=== PATIENT | male | born 1955 | race African-American/Black ===

== ENCOUNTER 2022-12-14 06:54 | Inpatient (IN) | payer MEDICARE ==
[2022-12-14 07:48] LABS: #Basophils 0.1 10x3/uL (0.0-0.2); #Eosinphils 0.1 10x3/uL (0.0-0.5); #Monocytes 0.9 10x3/uL (0.0-1.1); #Neutrophils 7.7 10x3/uL (1.5-8.4); %Basophils 0.5 % (0.0-2.0); %Eosinophils 0.6 % (0.0-6.0); %Monocytes 9.1 % (0.0-10.0); %Neutrophils 79.1 % (40.0-75.0); Hemoglobin 8.7 g/dL (13.5-17.5); Mean Corpuscular Hemoglobin 27.4 pg (27.0-33.0); Mean Corpuscular Volume 85.5 fl (81.2-95.1); Mean Platelet Volume 10.7 fl (7.4-10.4); Platelet Count 419 10x3/uL (150-450); RBC Distribution Width 14.5 % (11.5-14.5); Red Blood Cell (RBC) Count 3.18 10x6/uL (4.32-5.72); White Blood Cell (WBC) Count 9.7 10x3/uL (3.5-10.5)
[2022-12-14 07:55] LABS: ALT (SGPT) 36 U/L (8-55); AST (SGOT) 40 U/L (5-34); Acetaminophen Less than 10.0 mcg/mL (10.0-30.0); Albumin 3.5 g/dL (3.4-4.8); Alcohol Less than 10 mg/dL (Less than 10); Alkaline Phosphatase 97 U/L (40-110); Anion Gap 22 mmol/L (10-20); BUN (Urea Nitrogen) 25 mg/dL (8.4-25.7); Bilirubin, Total 0.2 mg/dL (0.2-1.2); Calc. Creatinine Clearance 0 mL/min (70-130); Calcium 9.5 mg/dL (7.8-10.44); Carbon Dioxide 31 mmol/L (23-31); Chloride 95 mmol/L (98-107); Estimated GFR 55; Globulin 3.9 g/dL (2.4-3.5); Glucose 337 mg/dL (80-115); Potassium 3.8 mmol/L (3.5-5.1); Protein, Total 7.4 g/dL (5.8-8.1); Salicylate Less than 8.0 mg/dL (15.0-30.0); Sodium 144 mmol/L (136-145)
[2022-12-14 08:01] LABS: Platelet Morphology Comment Appears Adequate
[2022-12-14 10:33] LABS: Lactic Acid 1.4 mmol/L (0.5-2.2)
[2022-12-14] MEDS ORDERED: Mag-Al Plus 1200 MG/1200 MG/120 MG/30 ML UDCUP ONE (11:59)
[2022-12-14] MEDS ORDERED: Acetaminophen 325 MG TAB PO PRN (14:01)
[2022-12-14] MEDS ORDERED: Senokot S 8.6-50 MG TAB PO PRN (14:01)
[2022-12-14] MEDS ORDERED: Multivitamins, Adult 10 ML, Folic Acid 1 MG, Thiamine HCl 100 MG in Dextrose 5 %-0.45 %... IV SCH (14:15)
[2022-12-14] MEDS ORDERED: levETIRAcetam 500 MG TAB PO SCH (14:15)
[2022-12-14] MEDS ORDERED: Dextrose 5% in Water 1,000 ML IV PRN (14:28)
[2022-12-14] MEDS ORDERED: Dextrose 50% Abboject 50 ML SYRINGE SLOW IVP PRN (14:28)
[2022-12-14] MEDS ORDERED: Multivit, Therapeutic 1 TAB PO SCH (14:30)
[2022-12-14] MEDS ORDERED: Thiamine HCl 200 MG/2 ML VIAL SLOW IVP SCH (14:30)
[2022-12-14 15:46] VITALS: BMI 24.0
[2022-12-14] MEDS ORDERED: FLU VACC QS2022-23(65YR UP)/PF 240 MCG/0.7 ML SYRINGE IM ONE (16:00)
[2022-12-14] MEDS: Sodium Chloride 0.9% 1,000 ML IV SCH (17:00)
[2022-12-14] MEDS: levETIRAcetam 500 MG TAB PO SCH (20:24)
[2022-12-14] MEDS: Heparin 5,000 UNITS/ML VIAL SC SCH (20:24)
[2022-12-14] MEDS: HumaLOG 300 UNITS/3 ML VIAL SC PRN (20:32)
[2022-12-15 03:39] LABS: #Eosinphils 0.3 10x3/uL (0.0-0.5); #Monocytes 0.8 10x3/uL (0.0-1.1); #Neutrophils 6.8 10x3/uL (1.5-8.4); %Basophils 0.2 % (0.0-2.0); %Lymphocytes 19.6 % (18.0-47.0); %Monocytes 7.9 % (0.0-10.0); Hemoglobin 7.6 g/dL (13.5-17.5); Mean Corpuscular HGB CONC 31.4 g/dL (32.0-36.0); Mean Corpuscular Hemoglobin 27.3 pg (27.0-33.0); Mean Corpuscular Volume 87.1 fl (81.2-95.1); Mean Platelet Volume 9.7 fl (7.4-10.4); Platelet Count 384 10x3/uL (150-450); RBC Distribution Width 14.3 % (11.5-14.5); Red Blood Cell (RBC) Count 2.78 10x6/uL (4.32-5.72); White Blood Cell (WBC) Count 9.9 10x3/uL (3.5-10.5)
[2022-12-15 04:00] LABS: ALT (SGPT) 48 U/L (8-55); AST (SGOT) 55 U/L (5-34); Albumin 2.8 g/dL (3.4-4.8); Alkaline Phosphatase 81 U/L (40-110); Anion Gap 14 mmol/L (10-20); BUN (Urea Nitrogen) 12 mg/dL (8.4-25.7); Bilirubin, Total 0.2 mg/dL (0.2-1.2); Calc. Creatinine Clearance 71 mL/min (70-130); Calcium 8.6 mg/dL (7.8-10.44); Carbon Dioxide 24 mmol/L (23-31); Chloride 102 mmol/L (98-107); Estimated GFR 92; Globulin 3.4 g/dL (2.4-3.5); Glucose 150 mg/dL (80-115); Potassium 3.3 mmol/L (3.5-5.1); Protein, Total 6.2 g/dL (5.8-8.1); Sodium 137 mmol/L (136-145)
[2022-12-15] MEDS: Sodium Chloride 0.9% 1,000 ML IV SCH ×2 (07:25→20:58)
[2022-12-15] MEDS ORDERED: Lorazepam 2 MG/ML VIAL IM PRN (08:04)
[2022-12-15] MEDS ORDERED: Ondansetron ODT 4 MG TAB PO PRN (08:04)
[2022-12-15] MEDS ORDERED: Lorazepam 1 MG TAB PO PRN (08:04)
[2022-12-15] MEDS ORDERED: Electrolyte Replacement Protocol 1 EACH FS SCH (08:15)
[2022-12-15] MEDS: Heparin 5,000 UNITS/ML VIAL SC SCH ×2 (08:55→21:00)
[2022-12-15] MEDS ORDERED: Potassium Chloride 20 MEQ TAB PO SCH (09:00)
[2022-12-15] MEDS: levETIRAcetam 500 MG TAB PO SCH ×2 (09:39→20:58)
[2022-12-15] MEDS: Lorazepam 1 MG TAB PO SCH ×3 (09:39→20:58)
[2022-12-15] MEDS: Thiamine HCl 200 MG/2 ML VIAL SLOW IVP SCH (09:40)
[2022-12-15] MEDS ORDERED: hydrALAZINE 20 MG/ML VIAL SLOW IVP PRN (12:39)
[2022-12-15] MEDS ORDERED: Aspirin 325 mg Enteric Coated Tablet PO SCH (13:00)
[2022-12-15] MEDS: Aspirin 325 mg Enteric Coated Tablet PO SCH (14:10)
[2022-12-15 15:44] LABS: Iron 14 ug/dL (65-175); Iron Binding Capacity, Total 188 mcg/dL (261-462); Potassium 4.2 mmol/L (3.5-5.1); Transferrin, Serum 150 mg/dL (163-344)
[2022-12-15] MEDS: HumaLOG 300 UNITS/3 ML VIAL SC PRN (17:41)
[2022-12-15] MEDS: Atorvastatin Calcium 40 MG TAB PO SCH (20:58)
[2022-12-16] MEDS: Lorazepam 1 MG TAB PO SCH ×5 (02:55→20:37)
[2022-12-16 05:23] LABS: Cardiac Risk 5.4 (Less than 4.5); Cholesterol 156 mg/dl (< 200 Desired); HDL Cholesterol 29 mg/dL (>60 Neg Risk); LDL Cholesterol, Calculated 104 mg/dL; Magnesium 1.6 mg/dL (1.6-2.6); Phosphorus 2.4 mg/dL (2.3-4.7); Triglycerides 113 mg/dL (Less than 150)
[2022-12-16] MEDS: Sodium Chloride 0.9% 1,000 ML IV SCH ×2 (07:55→13:20)
[2022-12-16] MEDS ORDERED: Magnesium 2 GM/50 ML(in water) 2 GM in Premix Bag 1 BAG IVPB SCH (08:00)
[2022-12-16] MEDS ORDERED: Lorazepam 1 MG TAB PO PRN (08:05)
[2022-12-16] MEDS: Thiamine HCl 200 MG/2 ML VIAL SLOW IVP SCH (10:25)
[2022-12-16] MEDS: levETIRAcetam 500 MG TAB PO SCH ×2 (10:27→20:37)
[2022-12-16] MEDS: Heparin 5,000 UNITS/ML VIAL SC SCH ×2 (10:27→20:38)
[2022-12-16] MEDS: Aspirin 325 mg Enteric Coated Tablet PO SCH (10:27)
[2022-12-16] MEDS: HumaLOG 300 UNITS/3 ML VIAL SC PRN ×2 (16:34→22:14)
[2022-12-16] MEDS: Atorvastatin Calcium 40 MG TAB PO SCH (20:37)
[2022-12-17] MEDS: Lorazepam 1 MG TAB PO SCH (04:18)
[2022-12-17] MEDS: Sodium Chloride 0.9% 1,000 ML IV SCH (04:18)
[2022-12-17 04:48] LABS: #Eosinphils 0.3 10x3/uL (0.0-0.5); #Monocytes 0.4 10x3/uL (0.0-1.1); %Basophils 0.4 % (0.0-2.0); %Eosinophils 3.5 % (0.0-6.0); %Lymphocytes 24.6 % (18.0-47.0); %Monocytes 5.2 % (0.0-10.0); %Neutrophils 65.8 % (40.0-75.0); Mean Corpuscular HGB CONC 31.7 g/dL (32.0-36.0); Mean Corpuscular Hemoglobin 26.8 pg (27.0-33.0); Mean Corpuscular Volume 84.7 fl (81.2-95.1); Mean Platelet Volume 10.1 fl (7.4-10.4); Platelet Count 454 10x3/uL (150-450); RBC Distribution Width 14.2 % (11.5-14.5); Red Blood Cell (RBC) Count 2.61 10x6/uL (4.32-5.72); White Blood Cell (WBC) Count 7.5 10x3/uL (3.5-10.5)
[2022-12-17 05:06] LABS: Anion Gap 12 mmol/L (10-20); BUN (Urea Nitrogen) 14 mg/dL (8.4-25.7); Calc. Creatinine Clearance 68 mL/min (70-130); Calcium 8.3 mg/dL (7.8-10.44); Carbon Dioxide 24 mmol/L (23-31); Chloride 103 mmol/L (98-107); Estimated GFR 88; Glucose 155 mg/dL (80-115); Potassium 4.3 mmol/L (3.5-5.1); Sodium 135 mmol/L (136-145)
[2022-12-17] MEDS: HumaLOG 300 UNITS/3 ML VIAL SC PRN ×2 (05:54→12:34)
[2022-12-17] MEDS ORDERED: Lorazepam 1 MG TAB PO PRN (08:05)
[2022-12-17] MEDS ORDERED: Amlodipine 5 MG TAB PO SCH (09:00)
[2022-12-17] MEDS: Heparin 5,000 UNITS/ML VIAL SC SCH (10:03)
[2022-12-17] MEDS: Thiamine HCl 200 MG/2 ML VIAL SLOW IVP SCH (10:07)
[2022-12-17] MEDS: levETIRAcetam 500 MG TAB PO SCH (10:07)
[2022-12-17] MEDS: Aspirin 325 mg Enteric Coated Tablet PO SCH (10:07)
[2022-12-17] MEDS: Lorazepam 0.5 MG TAB PO SCH ×2 (10:08→16:32)
[2022-12-17 13:01] LABS: Hemoglobin 8.4 g/dL (13.5-17.5); Platelet Count 503 10x3/uL (150-450)
[2022-12-17 13:15] VITALS: TEMP 98.1
[2022-12-17 13:41] VITALS: BP 151/71
[2022-12-17] MEDS ORDERED: metFORMIN 500 MG TAB PO SCH (17:00)
[2022-12-18] MEDS ORDERED: Lorazepam 0.5 MG TAB PO PRN (08:05)
[2022-12-18] MEDS ORDERED: Thiamine 100 MG TAB PO SCH (09:00)
[2022-12-18] MEDS ORDERED: Amlodipine 5 MG TAB PO SCH (09:00)
== END 2022-12-17 15:00 | DRG 65 ==
LOC: CSHERS 06:54 → CSHTELE 15:11
PROVIDERS: ADMIT Internal Medicine; ATTEND Family Medicine
PROC: 4A10X4Z Monitoring of Central Nervous Electrical Activity, External Approach (ICD-10-PCS; principal; 2022-12-15)
DX: I63.9 Cerebral infarction, unspecified (principal); N17.9 Acute kidney failure, unspecified; I10 Essential (primary) hypertension; E86.0 Dehydration; M10.9 Gout, unspecified; G40.909 Epilepsy, unspecified, not intractable, without status epilepticus; E11.65 Type 2 diabetes mellitus with hyperglycemia; E87.6 Hypokalemia; Z20.822 Contact with and (suspected) exposure to COVID-19; D50.9 Iron deficiency anemia, unspecified
CPT/HCPCS: 36415; 36416; 70450; 70496; 70498; 70551; 71046; 80048; 80053; 80061; 80307; 82728; 83540; 83550; 83605; 83735; 84100; 84146; 84466; 84484; 85025; 86850; 86900; 86901; 93005; 93306; 95816; 95819; 95957; 96360; 96361; J1644; J1815; J3411; J3475; J7050; U0003; U0005